=== PATIENT | male | born 1950 | race Caucasian/White ===

== ENCOUNTER 2018-12-14 12:48 | Day surgery (SDC) | payer MEDICARE, BC ==
[~2018-12-14] VITALS: Ht 188 cm; Wt 142.1 kg
[~2018-12-14 12:48] MED LIST: AMLO10; Aspir 8181 MG; HYDCHL25; METF500; METO100ER; Quinapril HCl40 MG
--- NOTE | 2018-12-14 16:46 | NUR ---
12/14/18 [id number] Diana Gao LATE ENTRY----DISCUSSION WITH DR PLUMMER REGARDING NEED FOR MAC. DR PLUMMER REVIEWED CHART AND ASSESSED PATIENT AND AGREED THIS PATIENT COULD BE DONE NURSE SEDATION. THIS WAS EXPLAINED AND DISCUSSED WITH THE PATIENT AND HE AGREES. DR JANE INFORMED ALSO AND IN AGREEMENT.
--- NOTE | 2018-12-14 16:49 | NUR ---
12/14/18 [id number] Diana Gao LATE ENTRY----NURSE SEDATION WAS DONE WITHOUT PROBLEMS. THE PATIENT DID REQUIRE MORE THAN 100MG OF PROPOFOL BUT BOLUSED WITH DR JANE'S PERMISSION AND GUIDANCE. ONCE PATIENT WAS ASLEEP, I DID ADJUST HIS HEAD ON THE PILLOW TO NOSE UP SNIFFING POSITION AND PATIENT REMAINED IN THIS POSITION THROUGHOUT AND NO OTHER INTERVENTION FOR BREATHIN WAS NEEDED AND PATIENT DID MOVE AIR WELL. THE CASE WAS COMPLETED BUT PREP WAS INADEQUATE FOR VISUALIZATION OF POLYPS SO PER DR JANE PATIENT WILL NEED TO BE RESCHEDULED.
[2018-12-15] MEDS ORDERED: Azor 5-20 MG T1 EACH (14:25)
== END 2018-12-14 16:00 | disposition home or self-care (01) ==
LOC: ORSCSDS 12:48
PROVIDERS: Internal Medicine Gastroenterology
PROC: 0DJD8ZZ Inspection of Lower Intestinal Tract, Via Natural or Artificial Opening Endoscopic (ICD-10-PCS; principal; 2018-12-14 14:00)
DX: Z12.11 Encounter for screening for malignant neoplasm of colon (principal); Z86.010 Personal history of colon polyps; K64.8 Other hemorrhoids; I10 Essential (primary) hypertension; Z79.82 Long term (current) use of aspirin; Z79.899 Other long term (current) drug therapy
CPT/HCPCS: J2704; J7120

== ENCOUNTER 2018-12-15 13:48 | Day surgery (SDC) | payer MEDICARE, BC ==
[~2018-12-15] VITALS: Ht 188 cm; Wt 141.9 kg
[2018-12-15] MEDS ORDERED: Azor 5-20 MG T1 EACH (14:25)
--- NOTE | 2018-12-15 16:10 | NUR ---
12/15/18 1610 Diana Gao O2 @ 10L WITH NON REBREATHER MASK
== END 2018-12-15 17:05 | disposition home or self-care (01) ==
LOC: ORSCSDS 13:48
PROVIDERS: Internal Medicine Gastroenterology
PROC: 0DBK8ZX Excision of Ascending Colon, Via Natural or Artificial Opening Endoscopic, Diagnostic (ICD-10-PCS; principal; 2018-12-15 15:00)
DX: Z12.11 Encounter for screening for malignant neoplasm of colon (principal); Z86.010 Personal history of colon polyps; D12.2 Benign neoplasm of ascending colon; K57.30 Diverticulosis of large intestine without perforation or abscess without bleeding; K64.8 Other hemorrhoids; I10 Essential (primary) hypertension; Z79.899 Other long term (current) drug therapy
CPT/HCPCS: 82947; 88305; J2704; J7120